=== PATIENT | male | born 2000 | race Hispanic/Latino ===

== ENCOUNTER 2022-02-27 19:24 | Emergency (ER) | payer BC, MEDICAID ==
[~2022-02-27] VITALS: Ht 170.2 cm; Wt 78.5 kg
[2022-02-27 20:12] VITALS: BP 117/72
[2022-02-27] MEDS ORDERED: ACETAMINOPHEN 500 MG TABLET PO ONE (23:30)
[2022-02-27] MEDS ORDERED: PSEU120T62 PO (23:50)
[2022-02-27] MEDS ORDERED: PHEN118L19 PO (23:50)
[2022-02-27] MEDS ORDERED: NIRM1TAB PO (23:50)
[2022-02-27] MEDS ORDERED: IBUP-2070 PO (23:50)
== END 2022-02-28 00:05 | disposition home or self-care (01) ==
LOC: EDH 19:24
DX: U07.1 COVID-19 (principal); K21.9 Gastro-esophageal reflux disease without esophagitis; Z79.1 Long term (current) use of non-steroidal anti-inflammatories (NSAID)
CPT/HCPCS: 99283; 87635; 87880; 87804 ×2; C9803

== ENCOUNTER 2022-03-03 21:40 | Emergency (ER) | payer BC ==
[~2022-03-03] VITALS: Ht 170.2 cm; Wt 82.1 kg
[~2022-03-03 21:40] MED LIST: IBUP-2070 PO; NIRM1TAB PO; PHEN118L19 PO; PSEU120T62 PO
[2022-03-03 22:54] VITALS: BP 128/70
[2022-03-03] MEDS ORDERED: FLUT16H NASAL (23:13)
== END 2022-03-03 23:46 | disposition home or self-care (01) ==
LOC: EDH 21:40
DX: U07.1 COVID-19 (principal); J02.9 Acute pharyngitis, unspecified; J45.909 Unspecified asthma, uncomplicated; Z20.822 Contact with and (suspected) exposure to COVID-19; Z79.899 Other long term (current) drug therapy
CPT/HCPCS: 99283; 87635; 87880; 87804 ×2; C9803

== ENCOUNTER 2022-04-22 05:36 | Emergency (ER) | payer BC ==
[~2022-04-22] VITALS: Ht 172.7 cm; Wt 79.4 kg
[~2022-04-22 05:36] MED LIST changes: +FLUT16H NASAL
[2022-04-22 05:38] VITALS: BP 120/80
== END 2022-04-22 06:04 | disposition home or self-care (01) ==
LOC: EDH 05:36
DX: T16.1XXA Foreign body in right ear, initial encounter (principal); Z79.899 Other long term (current) drug therapy; X58.XXXA Exposure to other specified factors, initial encounter; Y93.9 Activity, unspecified; Y92.89 Other specified places as the place of occurrence of the external cause; Y99.8 Other external cause status
CPT/HCPCS: 69200